=== PATIENT | male | born 1955 | race Caucasian/White ===

== ENCOUNTER → 2019-05-18 16:27 | Outpatient (CLI) | payer MEDICARE, SELFPAY ==
--- NOTE | ~2019-05-18 | XR_ITS ---
EXAMINATION: XR shoulder RT min 2V INDICATION: Right shoulder pain TECHNIQUE: Four views of the right shoulder are submitted. COMPARISON: None FINDINGS: Normal alignment. No fracture. There is mild glenohumeral and acromioclavicular joint osteo arthritis. Soft tissues are unremarkable. Scattered calcified pulmonary nodules are consistent with o ld granulomatous disease. IMPRESSION: Mild osteoarthritis without acute osseous abnormality. Reviewed, dictated and finalized at location A. EROLE PREPARER
== END ==
PROVIDERS: PCP Family Medicine; Visit Provider Physician Assistant Medical
DX: M19.011 Primary osteoarthritis, right shoulder (principal)
CPT/HCPCS: 73030

== ENCOUNTER → 2019-05-30 09:39 | Outpatient (CLI) | payer MEDICARE, SELFPAY ==
--- NOTE | ~2019-05-30 | XR_ITS ---
EXAMINATION: XR chest 2V EXAM DATE: 05/30/2019 10:47 INDICATION: Chest pain, generalized. Pulmonary nodules on shoulder x-ray. TECHNIQUE: Frontal and lateral projections of the chest obtained and reviewed. There is no prior isabell dy for comparison. FINDINGS: Multiple scattered nodular densities which are likely calcified given density, consistent with granulomas. There is moderate chronic appearing hyperinflation. No confluent consolidation, pneu mothorax or pleural effusion suspected. Mild thoracic spondylosis. IMPRESSION: Granulomata. Hyperinflation. Reviewed, dictated and finalized at location B. ERY DIRECTOR
== END ==
PROVIDERS: PCP Family Medicine; Visit Provider Family Medicine
DX: J84.10 Pulmonary fibrosis, unspecified (principal)
CPT/HCPCS: 71046

== ENCOUNTER 2019-06-15 14:11 | Outpatient (CLI) | payer MEDICARE, SELFPAY ==
--- NOTE | 2019-06-30 13:35 | WPDPFTINT ---
PFT Interpretation PFT Interpretation: DOS: 06/15/2019 REQUESTING: Mary Pandey PA-C REASON FOR TESTING: Hyperinflation of lungs PULMONARY FUNCTION TESTS This test was reproducible with 3 adequate attempts. Spirometry: Mild decrease in FEV1 78% predicted, 2.48 L. FVC is normal 86%. FEV1% is decreased 62%. TAB66-02% is reduced at 40%, and increases by 20% with bronchodilator. Lung volumes: Normal TLC, 98%. Increased RV/TLC 41%. increased airway resistance 266%. Diffusion: DLCO 98%, normal. Flow volume loop: Mild scooping of the expiratory limb. IMPRESSION: This study shows mild obstructive ventilatory impairment, severe in the small airways with a mild response to bronchodilator only in the small airways. Mild air trapping and increase in airway resistance. Normal diffusion. This pattern may be seen in asthma. Close clinical follow-up is recommended. Meagan Streeter MD
== END 2019-06-15 14:12 | disposition home or self-care (01) ==
PROVIDERS: PCP Family Medicine; Visit Provider Physician Assistant Medical
DX: R09.89 Other specified symptoms and signs involving the circulatory and respiratory systems (principal)
CPT/HCPCS: 94060; 94726; 94729

== ENCOUNTER 2020-02-28 16:30 | Outpatient (CLI) | payer MEDICARE, SELFPAY ==
[2020-02-28 18:29] LABS: Vitamin D 25 Hydroxy 75.8 ng/mL
== END 2020-02-28 16:31 | disposition home or self-care (01) ==
LOC: ANHLAB 16:32
PROVIDERS: PCP Family Medicine; Visit Provider Nurse Practitioner Family
DX: E55.9 Vitamin D deficiency, unspecified (principal)
CPT/HCPCS: 36415; 82306

== ENCOUNTER 2020-03-20 13:33 | Outpatient (CLI) | payer MEDICARE, SELFPAY ==
--- NOTE | ~2020-03-20 | US_ITS ---
US right upper quadrant INDICATION: Hepatitis C. Liver lesion. PROCEDURE: Realtime right upper abdominal ultrasound. COMPARISON: No prior studies for comparison. FINDINGS: The pancreas is normal without focal mass or pancreatic ductal dilation. Liver slightly in creased with heterogeneous echotexture. No discrete mass identified. Normal without focal mass or int rahepatic biliary dilatation. There is normal directional flow in the portal vein. Gallbladder is surgically absent. Common bile duct measures 5 mm. IMPRESSION: 1: Coarse heterogeneous echotexture of the liver. No discrete mass. Reviewed, dictated and finalized at location A. IST ADVISER
[2020-03-20 14:57] LABS: Basophils Percent Auto 0.4 % (0.2-1.2); Eosinophils Absolute Auto 0.1 K/mm3 (0-0.3); Eosinophils Percent Auto 1.3 % (0-4.4); Hematocrit 40.6 % (42.0-52.0); Hemoglobin 13.9 g/dL (14.0-18.0); Immature Granulocyte Absolute 0.01 K/mm3 (0.00-0.031); Immature Granulocyte Percent A 0.1 % (0-0.5); Lymphocytes Absolute Auto 2.48 K/mm3 (0.9-3.2); Lymphocytes Percent Auto 33.4 % (18.3-44.2); Mean Corpuscular HGB Conc 34.2 g/dl (32-36); Mean Corpuscular Hemoglobin 31.1 pg (26-34); Mean Corpuscular Volume 90.8 fl (80-100); Mean Platelet Volume 9.9 fl (7.4-10.4); Monocytes Absolute Auto 0.7 K/mm3 (0.1-0.6); Monocytes Percent Auto 8.9 % (2.6-8.5); Neutrophils Absolute Auto 4.2 K/mm3 (1.3-6.7); Neutrophils Percent Auto 55.9 % (45.5-73.1); Platelet Count Result 195 k/mm3 (150-375); Red Blood Count 4.47 M/mm3 (4.6-6.20); Red Cell Distribution Width 12.5 % (11.5-14.5); White Blood Count 7.4 K/mm3 (4.5-10.0)
[2020-03-20 15:03] LABS: Prothrombin Time 13.7 Seconds (11.1-14.7)
[2020-03-20 15:05] LABS: Alanine Aminotransferase 25 U/L (4-50); Albumin Level 4.4 g/dL (3.5-5.1); Alkaline Phosphatase 74 U/L (38-126); Anion Gap 5 mmol/L (8-16); Aspartate Amino Transferase 37 U/L (17-59); Bilirubin,Total 0.8 mg/dL (0.2-1.3); Blood Urea Nitrogen 12 mg/dL (9-20); Calcium 9.6 mg/dL (8.4-10.2); Carbon Dioxide 33 mmol/L (22-30); Chloride 100 mmol/L (98-107); Estimated Glomerular Filt Rate > 60; Glucose 98 mg/dL (75-110); Potassium 3.8 mmol/L (3.4-5.0); Sodium 138 mmol/L (137-145)
== END 2020-03-20 13:34 | disposition home or self-care (01) ==
PROVIDERS: PCP Family Medicine
DX: K76.89 Other specified diseases of liver (principal); K74.60 Unspecified cirrhosis of liver; B18.2 Chronic viral hepatitis C; K76.9 Liver disease, unspecified
CPT/HCPCS: 36415; 76705; 80053; 85025; 85610

== ENCOUNTER → 2020-05-24 11:43 | Outpatient (CLI) | payer MEDICARE, MEDICAID, SELFPAY ==
--- NOTE | ~2020-05-24 | XR_ITS ---
XR knee RT 2V DATE: 05/24/2020 12:14 INDICATION: Right knee pain TECHNIQUE: Standing AP and lateral views COMPARISON: None FINDINGS: There is prominent enthesopathy of the superior pole of patella at the quadriceps tendon in sertion. Mild suprapatellar knee joint effusion is suggested. No fracture or dislocation, periosteal reaction or bone destruction, radiopaque intra-articular loose body or chondrocalcinosis or any significant joint space narrowing is evident. IMPRESSION: Suggestion of small suprapatellar knee joint effusion Prominent superior pole patellar enthesopathy Reviewed, dictated and finalized at location B. RIBUTION SYSTEMS SERVICEPERSON
--- NOTE | ~2020-05-24 | XR_ITS ---
XR_CERV2-3V_CR DATE: 05/24/2020 12:14 INDICATION: Neck pain TECHNIQUE: Standing AP, lateral, swimmer's and open-mouth views COMPARISON: None FINDINGS: There is straightening of the cervical spine, which may be due to muscle spasm. C1 and C2 are normally aligned and the odontoid process is intact. No fracture or dislocation or locked facet is evident. No prevertebral soft tissue swelling. There is severe degenerative disc disease at C3-4, C5-6 and C6-7 and moderately severe degenerative d isease at C4-5. There is degenerative change at the apophyseal and uncovertebral joints. IMPRESSION: Straightening of the cervical spine Severe cervical spondylosis Reviewed, dictated and finalized at Location A. Reviewed, dictated and finalized at location B. ERTY ADJUSTER
== END ==
PROVIDERS: PCP Family Medicine; Visit Provider Nurse Practitioner Family
DX: G89.29 Other chronic pain (principal); M25.561 Pain in right knee; M47.892 Other spondylosis, cervical region
CPT/HCPCS: 72040; 73560

== ENCOUNTER → 2020-05-30 13:09 | Outpatient (CLI) | payer MEDICARE, MEDICAID, SELFPAY ==
--- NOTE | ~2020-05-30 | MR_ITS ---
EXAMINATION: MR cervical spine wo con DATE: 05/30/2020 14:42 INDICATION: Neck pain. TECHNIQUE: Magnetic resonance imaging (MRI) of the cervical spine was performed without intravenous c ontrast. Sequences included sagittal T2-weighted FSE, sagittal STIR FSE, sagittal T1-weighted FSE, ax ial MERGE, and axial T2-weighted FSE. COMPARISON: Cervical spine radiographs 05/24/2020 FINDINGS: Bone alignment is normal. Vertebral body heights are normal. There is severely decreased di sc height at C3-C4, moderately decreased disc height at C4-C5, and severely decreased disc height fro m C5-C6 through C7-T1 with endplate remodeling. The spinal cord signal intensity is normal. The follo wing disc levels are specifically discussed: C2-C3: The disc does not extend beyond the endplate margin. There is no uncovertebral joint osteoarth ritis. There is mild bilateral facet joint osteoarthritis. There is no neural foraminal stenosis. The re is no central canal stenosis. C3-C4: There is a central extrusion. There is mild right and moderate left uncovertebral joint osteoa rthritis. There is mild bilateral facet joint osteoarthritis. There is mild bilateral neural foramina l stenosis. There is mild central canal stenosis with ventral indentation of the spinal cord. C4-C5: The disc is bulging. There is severe right and moderate left uncovertebral joint osteoarthriti s. There is severe right and moderate left facet joint osteoarthritis. There is moderate right neural foraminal stenosis. There is mild central canal stenosis with ventral indentation of the spinal cord . C5-C6: There is interbody fusion. There is moderate bilateral uncovertebral joint hypertrophy. There is no facet joint osteoarthritis. There is mild bilateral neural foraminal stenosis. There is mild ce ntral canal stenosis with ventral indentation of spinal cord. C6-C7: The disc does not extend beyond the endplate margin. There is moderate right and severe left u ncovertebral joint osteoarthritis. There is no facet joint osteoarthritis. There is mild left neural foraminal stenosis. There is mild central canal stenosis. C7-T1: The disc does not extend beyond the endplate margin. There is moderate bilateral uncovertebral joint osteoarthritis. There is mild bilateral facet joint osteoarthritis. There is mild bilateral ne ural foraminal stenosis. There is no central canal stenosis. IMPRESSION: 1. Severe cervical spondylosis. Reviewed, dictated and finalized at location A. OVEMENT LEAD
--- NOTE | ~2020-05-30 | MR_ITS ---
EXAMINATION: MR brain/brain stem wo/w con DATE: 05/30/2020 14:58 INDICATION: Headache. TECHNIQUE: Magnetic resonance imaging (MRI) of the brain and brainstem was performed without and with 12 mL MultiHance intravenous contrast. Sequences included sagittal and axial T1-weighted FSE, axial diffusion-weighted FS EPI, axial T2*-weighted GRE, axial T2-weighted FLAIR Propeller, and axial T2-we ighted Propeller. Postcontrast sequences included axial and coronal T1-weighted FSE. Apparent diffusi on coefficient (ADC) maps were created. COMPARISON: None. FINDINGS: There are old infarcts in left cerebellum. There are scattered areas of nonspecific increas ed T2-weighted signal intensity in the cerebral white matter. There is no intracranial hemorrhage, ac [place] infarction, or abnormal intracranial mass lesion. The ventricles are normal in size. The paranasa l sinuses are clear. The orbits are normal. The mastoid air cells are normal. IMPRESSION: 1. 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 2. Mild nonspecific cerebral white matter disease, which likely represents chronic small vessel ische matilde disease. Reviewed, dictated and finalized at location A. STRIPPER IMPRESSION: 1. 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 2. Mild nonspecific cerebral white matter disease, which likely represents belt lacer alvin small vessel ischemic disease.
[2020-05-30 14:39] LABS: Estimated Glomerular Filt Rate > 60
== END ==
PROVIDERS: PCP Family Medicine; Visit Provider Nurse Practitioner Family
DX: R41.0 Disorientation, unspecified (principal); M47.892 Other spondylosis, cervical region; R93.0 Abnormal findings on diagnostic imaging of skull and head, not elsewhere classified
CPT/HCPCS: 70553; 72141; A9577

== ENCOUNTER 2020-07-04 16:15 | Outpatient (CLI) | payer MEDICARE, MEDICAID, SELFPAY ==
--- NOTE | ~2020-07-04 | MR_ITS ---
EXAMINATION: MR knee RT wo con DATE: 07/04/2020 16:59 INDICATION: Right knee pain. TECHNIQUE: Magnetic resonance imaging (MRI) of the right knee was performed without intravenous contr ast. Sequences included axial PD-weighted FS FSE, coronal PD-weighted FSE and PD-weighted FS FSE, sag ittal PD-weighted FSE, and sagittal T2-weighted FS FSE. COMPARISON: Right knee radiographs 05/24/2020 FINDINGS: Medial compartment: There is a complex tear involving body and posterior horn of medial meniscus. There is a 4 mm paralab ral cyst adjacent to the posterior horn. There is partial-thickness cartilage loss of femoral condyle , deep at the central and articular surface. There is partial-thickness cartilage loss of tibial cond yle, deep at the central articular surface. There are tiny marginal osteophytes. Lateral compartment: There is a vertical tear of body of lateral meniscus. There is shallow partial-thickness cartilage lo ss of tibial condyle and femoral condyle. There are tiny marginal osteophytes. Patellofemoral compartment: There is cartilage surface irregularity of patella and trochlea. There are tiny marginal osteophytes. Ligaments and tendons: The anterior and posterior cruciate ligaments are normal. There are changes of prior sprains of media l collateral ligament and fibular collateral ligament characterized by thickening and increased signa l intensity proximally. There is mild patellar tendinopathy. Fluid: There is a small knee joint effusion. There is mild superficial infrapatellar bursitis. There is trac e fluid in a Gu's cyst. IMPRESSION: 1. Moderate chondrosis of medial compartment and mild chondrosis of lateral and patellofemoral compar tments. 2. Tears of medial and lateral menisci. 3. Small knee joint effusion. Reviewed, dictated and finalized at location A. IMPRESSION: 1. Moderate chondrosis of medial compartment and mild chondrosis of lateral and patellofemoral compartments. 2. Tears of medial and lateral menisci. 3. Small knee joint effusion.
== END 2020-07-04 16:16 | disposition home or self-care (01) ==
PROVIDERS: PCP Family Medicine; Visit Provider Nurse Practitioner Family
DX: M25.661 Stiffness of right knee, not elsewhere classified (principal); M25.461 Effusion, right knee; S83.231A Complex tear of medial meniscus, current injury, right knee, initial encounter; S83.281A Other tear of lateral meniscus, current injury, right knee, initial encounter
CPT/HCPCS: 73721

== ENCOUNTER → 2020-07-30 04:37 | Outpatient (CLI) | payer MEDICARE, SELFPAY ==
[2020-07-30 19:57] LABS: SARS-CoV-2 RNA PCR Negative
== END ==
PROVIDERS: PCP Family Medicine; Visit Provider Orthopaedic Surgery
DX: Z01.812 Encounter for preprocedural laboratory examination (principal); Z20.822 Contact with and (suspected) exposure to COVID-19
CPT/HCPCS: C9803; U0003; U0005

== ENCOUNTER 2020-07-30 07:39 | Outpatient (CLI) | payer MEDICARE, SELFPAY ==
--- NOTE | 2020-07-30 08:30 | ECG_ITS ---
Measurements Intervals [place] Rate: 54 P: 64 IA: 141 QRS: 66 QRSD: 110 T: 64 QT: 434 QTc: 412 Interpretive Statements SINUS BRADYCARDIA INCOMPLETE RIGHT BUNDLE BRANCH BLOCK DELAYED PRECORDIAL R/S TRANSITION BASELINE ARTIFACT- I, II, AVR BORDERLINE ECG Electronically Signed On 07-30-2020 8:15:09 CDT by Jose E Christensen D.O.
== END 2020-07-30 07:40 | disposition home or self-care (01) ==
LOC: ANHSURGERY 07:43
PROVIDERS: PCP Family Medicine; Visit Provider Orthopaedic Surgery
DX: Z01.810 Encounter for preprocedural cardiovascular examination (principal); I10 Essential (primary) hypertension; I45.10 Unspecified right bundle-branch block; R00.1 Bradycardia, unspecified
CPT/HCPCS: 93005; C9803; U0003; U0005

== ENCOUNTER 2020-08-02 01:22 | Day surgery (SDC) | payer MEDICARE, MEDICAID, SELFPAY ==
[2020-07-26 10:14] VITALS: BMI 19.6
--- NOTE | 2020-08-01 10:02 | WPDANESEPPF ---
Anes - Initial Pre Proc Eval Procedure: Operation Date: 08/02/20 10:30 Proposed Procedures p Arthroscopic Right Partial Medial and Lateral Meniscectomy - Jerome Hall MD Date/Time: 08/01/20 10:02 Surgeon: Jerome Hall MD Pre Op Diagnosis: right meniscus tear Patient Data Age: 65 Gender: M Height: 1.8 m Weight: 64 kg Allergies Allergy/AdvReac Type Severity Reaction Status Date / Time No Known Allergies Allergy Verified 08/02/20 08:49 Home Medications Medication Instructions Recorded Confirmed Type amlodipine 5 mg tablet 5 mg PO QPM 05/18/19 08/02/20 History B-complex with vitamin C 1 tablet PO DAILY 07/19/20 08/02/20 History aspirin 81 mg tablet,delayed 81 mg PO DAILY 07/19/20 08/02/20 History release cholecalciferol (vitamin D3) 25 25 mcg PO DAILY 07/19/20 08/02/20 History mcg (1,000 unit) capsule cbnlnefrqnpj-jrr-jypjc acid-vit 1 tablet PO DAILY 07/19/20 08/02/20 History K-lycop 400 mcg-20 mcg-370 mcg tablet duloxetine 30 mg PO QPM 07/26/20 08/02/20 History hydroxyzine HCl 37.5 mg PO TID PRN 07/26/20 08/02/20 History meloxicam 15 mg PO HS 07/26/20 08/02/20 History rosuvastatin 40 mg tablet 40 mg PO QPM #90 tablet 08/01/20 08/02/20 Rx hydrocodone-acetaminophen 1 - 2 tablet PO Q4H PRN #14 tablet 08/02/20 Rx MDD 8 tablets Patient hx anesthesia problems: none Family hx anesthesia problems: none PMFSH Past Medical History Medical History (Updated 07/19/20 @ 14:13 by Jerome Hall MD) Anxiety Anxiety and depression BMI between 19-24,adult Choking Chronic neck pain Cirrhosis Confusion COPD (chronic obstructive pulmonary disease) Elevated WBC count Encounter for lipid screening for cardiovascular disease Essential hypertension History of hepatitis C Hx of completed stroke Hyperlipidemia Insomnia Joint ache Memory loss Screening for prostate cancer Surgical History Surgical History (Updated 07/19/20 @ 13:24 by Marva Hall MA) History of cholecystectomy Family History Family History Father Family history of lung cancer Sibling Family history of lung cancer Grandparent Family history of malignant neoplasm of breast in first degree relative Social History Social History (Updated 07/19/20 @ 13:23 by Marva Hall MA) Smoking packs per day: 1.5 Smoking cigarettes per day: 30.0 Years smoked: 30 Smoking pack-years: 45.00 Smoking status: Former smoker Tobacco type: cigarettes Smoking end date: 10/05/99 Additional smoking assessment comments: 20+ years ago quit Alcohol intake: former Alcohol use details: HEAVY DRINKER PRIOR TO QUITTING 30 YEARS AGO Substance use: former Substance use type: amphetamines Other substance usage details: TEENAGER/EARLY 20'S Living arrangements: with family Additional living arrangements comments: [facility] Gender identity (if verbalized by the patient): Male Spiritual care concerns: No Anes - Eval Final PreProcedure Day of Procedure 08/01/20 10:02 Patient weight: normal Heart: regular rate and rhythm Lungs: clear to auscultation and normal air movement Airway: Mallampati scale class II Neurological: alert and oriented Last oral intake: >/= 8 hours ASA classification: IV Emergent: no Anesthetic plan: proceed Anesthesia type and monitoring: general LMA Informed Consent: The patient's anesthetic plan and its attendant risks and benefits were discussed with the patient/family/POA. Questions were solicited and answers provided to the satisfaction of the patient/family/POA.
[2020-08-02] VITALS (7 sets, daily range): BP systolic 100–141; BP diastolic 64–80; PULSE 59–72; RESP 12–20; TEMP 36.3; O2SAT 98–100
--- NOTE | 2020-08-02 07:03 | WPDHPUPDATE1 ---
History and Physical Update Update Date/Time: 08/02/20 07:03 History and Physical has been reviewed, including an updated exam of the patient. There are NO changes in the patient's condition. Risks, benefits, and alternatives have been discussed and questions answered. Patient agrees to proceed with procedure.
[2020-08-02] MEDS: ACETAMINOPHEN 500 MG TABLET 1000 MG PO (09:26)
[2020-08-02] MEDS: LACTATED RINGERS 1,000 ML 30 ML IV CONT ×2 (09:30→11:28)
[2020-08-02] MEDS: KETOROLAC 15 MG/ML VIAL (*BKC) IV PUSH (09:32)
[2020-08-02] MEDS: ceFAZolin 2 GM/D5W 50 ML 2 GM/50 ML BAG IVPB (10:30)
[2020-08-02] MEDS: BUPIVACAINE/EPINEPHRINE 0.5% 30 ML VIAL INFILTRATE (10:53)
--- NOTE | 2020-08-02 12:11 | PM.PROC ---
Procedure Note - Detailed Date of procedure: 08/02/20 Pre-op diagnosis: right meniscus tear Medial and lateral meniscus tears. Post-op diagnosis: same Procedure performed: Arthroscopic partial medial and lateral meniscectomy. Description of procedure: Significant posterior horn tear of the medial meniscus treated with debridement. Grade 2/Iii chondromalacia on the femur primarily. Minimal chondroplasty. Lateral compartment showed a small area of grade 1 chondromalacia on the femur. The tibia was normal. The lateral meniscus had mild fraying of the inner margin which was treated with gentle debridement. Anesthesia: GETA Surgeon: Jerome Hall MD Estimated blood loss (mL): 5 Complications: None Condition: stable Findings: Brief History: The patient complained of knee pain, swelling and mechanical symptoms despite conservative treatment. MRI confirmed the presence of a meniscus tear. Procedure Details: The patient was identified and the surgical site confirmed and signed in the preoperative holding area. Antibiotics were started per protocol. She was brought to the operative room and transferred to the OR table. A general anesthetic was administered. Supine position with the operative lower extremity position in the leg ramírez after placement of a well padded tourniquet. The leg support was lowered and the contralateral limb was supported with a soft bolster. The knee was prepped and draped in the usual sterile fashion. A time-out was performed. The portal sites were marked and infiltrated with 0.5% Marcaine 20 mL. The limb was exsanguinated and the tourniquet inflated to 300 mL Hg. Standard inferolateral and inferomedial portals were established. Inflow was obtained with the saline pump. The camera was introduced. Diagnostic inspection of the joint was accomplished. The menisci were debrided with the arthroscopic shaver and punches until stable. The arthroscopic instruments were removed. The tourniquet released and wounds closed with subcutaneous 3-0 Monocryl absorbable suture. Steri strips and a sterile dressing were applied. A light elastic wrap was placed. The patient was extubated and brought to the recovery room in stable condition.
== END 2020-08-02 12:56 | disposition home or self-care (01) ==
PROVIDERS: PCP Family Medicine; Visit Provider Orthopaedic Surgery
PROC: (CPT 29870; principal; 2020-08-02 10:30)
DX: S83.231A Complex tear of medial meniscus, current injury, right knee, initial encounter (principal); S83.281A Other tear of lateral meniscus, current injury, right knee, initial encounter; I10 Essential (primary) hypertension; E78.5 Hyperlipidemia, unspecified; J44.9 Chronic obstructive pulmonary disease, unspecified; Z86.73 Personal history of transient ischemic attack (TIA), and cerebral infarction without residual deficits; Z87.891 Personal history of nicotine dependence; X58.XXXA Exposure to other specified factors, initial encounter; Y93.9 Activity, unspecified; Y92.9 Unspecified place or not applicable; Y99.9 Unspecified external cause status
CPT/HCPCS: 29880; A9270; J0690; J1100; J1885; J2250; J2405; J2704; J3010; J7120

== ENCOUNTER 2020-08-23 06:47 | Outpatient (CLI) | payer MEDICARE, SELFPAY ==
[2020-08-23 07:22] LABS: Hematocrit 36.7 % (42.0-52.0); Hemoglobin 12.2 g/dL (14.0-18.0); Mean Corpuscular HGB Conc 33.2 g/dl (32-36); Mean Corpuscular Hemoglobin 30.7 pg (26-34); Mean Corpuscular Volume 92.4 fl (80-100); Mean Platelet Volume 9.8 fl (7.4-10.4); Platelet Count Result 150 k/mm3 (150-375); Red Blood Count 3.97 M/mm3 (4.6-6.20); White Blood Count 4.8 K/mm3 (4.5-10.0)
[2020-08-23 07:40] LABS: Alanine Aminotransferase 19 U/L (4-50); Albumin Level 4.1 g/dL (3.5-5.1); Alkaline Phosphatase 55 U/L (38-126); Anion Gap 3 mmol/L (8-16); Aspartate Amino Transferase 32 U/L (17-59); Bilirubin,Total 0.6 mg/dL (0.2-1.3); Blood Urea Nitrogen 17 mg/dL (9-20); Calcium 9.3 mg/dL (8.4-10.2); Carbon Dioxide 30 mmol/L (22-30); Chloride 104 mmol/L (98-107); Cholesterol 145 mg/dL (0-200); Estimated Glomerular Filt Rate > 60; Glucose 95 mg/dL (75-110); HDL Direct 60 mg/dL; Potassium 4.2 mmol/L (3.4-5.0); Sodium 137 mmol/L (137-145); Triglycerides 52 mg/dL (<150)
[2020-08-23 07:46] LABS: LDL Cholesterol Direct 67 mg/dL
[2020-08-23 08:06] LABS: Prostate Specific Antigen 1.3 ng/mL (< OR = 4.0)
[2020-08-23 22:14] LABS: Vitamin D 25 Hydroxy 49.7 ng/mL
== END 2020-08-23 06:48 | disposition home or self-care (01) ==
LOC: ANHLAB 06:51
PROVIDERS: PCP Family Medicine; Visit Provider Nurse Practitioner Family
DX: E55.9 Vitamin D deficiency, unspecified (principal); I10 Essential (primary) hypertension; R53.83 Other fatigue; Z13.29 Encounter for screening for other suspected endocrine disorder; E78.5 Hyperlipidemia, unspecified; Z12.5 Encounter for screening for malignant neoplasm of prostate
CPT/HCPCS: 36415; 80053; 80061; 82306; 84153; 84443; 85027; G0103

== ENCOUNTER 2020-09-04 16:09 | Outpatient (CLI) | payer MEDICARE, MEDICAID, SELFPAY ==
--- NOTE | ~2020-09-04 | MR_ITS ---
EXAMINATION: MR shoulder RT wo con DATE: 09/04/2020 17:03 INDICATION: Right shoulder pain and limited range of motion TECHNIQUE: Magnetic resonance imaging (MRI) of the right shoulder was performed without intravenous c ontrast. Sequences included axial PD-weighted FS FSE, coronal oblique PD-weighted FS FSE, coronal obl ique T2-weighted FS FSE, sagittal PD-weighted FS FSE, and sagittal T1-weighted SE. COMPARISON: None. FINDINGS: Coracoacromial arch: The acromion undersurface is curved in morphology (type II). Small anterior subacromial spur at the a cromial insertion of the normal coracoacromial ligament. Mild acromioclavicular osteoarthritis. Rotator cuff: Mild supraspinatus and infraspinatus tendinopathy. There is a small near full-thickness articular jaleesa ed tear along the superior facet footplate of the posterior supraspinatus tendon which measures up to 5 mm in maximal AP width and 2.0 cm medial to lateral. The teres minor tendon is normal. Mild subsca pularis tendinopathy without discrete tear. Normal rotator cuff muscle bulk and signal. Biceps tendon, glenoid labrum and glenohumeral cartilage: Long head of the biceps tendon is normal. superior, anterior to posterior tear of the glenoid labrum (SLAP tear) which begins anteriorly at the 3:00 position and extends posteriorly to the 10:00 positio n. Mild partial-thickness cartilage loss with smooth chondral surface along the cephalad half of the glenoid. Cartilage at the humeral head appears relatively preserved. Fluid: Physiologic amount of fluid in the glenohumeral joint and biceps tendon sheath. No loose osteochondra l bodies. Slight increased fluid signal in the subacromial/subdeltoid bursa consistent with minimal b ursitis. Bones: Normal marrow signal. No fracture or pathologic marrow replacing process. Mild cystic change at the l ramiro tuberosity. IMPRESSION: 1. Mild rotator cuff tendinopathy with small near full-thickness articular sided tear of the posterio r supraspinatus. 2. Mild glenohumeral osteoarthritis with SLAP tear of the anterior, superior to posterosuperior gleno id labrum. 3. Mild acromioclavicular osteoarthritis. Reviewed, dictated and finalized at location A. IMPRESSION: 1. Mild rotator cuff tendinopathy with small near full-thickness articular side d tear of the posterior supraspinatus. 2. Mild glenohumeral osteoarthritis with SLAP tear of the anterior, superior to posterosuperior glenoid labrum. 3. Mild acromioclavicular osteoarthritis.
== END 2020-09-04 16:10 | disposition home or self-care (01) ==
PROVIDERS: PCP Family Medicine; Visit Provider Nurse Practitioner Family
DX: M75.101 Unspecified rotator cuff tear or rupture of right shoulder, not specified as traumatic (principal); M19.011 Primary osteoarthritis, right shoulder; S43.431A Superior glenoid labrum lesion of right shoulder, initial encounter
CPT/HCPCS: 73221

== ENCOUNTER 2020-10-01 07:37 | Outpatient (CLI) | payer MEDICARE, SELFPAY ==
[2020-10-01 08:01] LABS: Hematocrit 40.1 % (42.0-52.0); Hemoglobin 12.8 g/dL (14.0-18.0); Mean Corpuscular HGB Conc 31.9 g/dl (32-36); Mean Corpuscular Hemoglobin 30.2 pg (26-34); Mean Corpuscular Volume 94.6 fl (80-100); Mean Platelet Volume 9.6 fl (7.4-10.4); Platelet Count Result 171 k/mm3 (150-375); Red Blood Count 4.24 M/mm3 (4.6-6.20); Red Cell Distribution Width 13.3 % (11.5-14.5); White Blood Count 6.1 K/mm3 (4.5-10.0)
== END 2020-10-01 07:38 | disposition home or self-care (01) ==
PROVIDERS: PCP Family Medicine; Visit Provider Nurse Practitioner Family
DX: D64.9 Anemia, unspecified (principal)
CPT/HCPCS: 36415; 85027

== ENCOUNTER 2020-10-05 07:18 | Outpatient (CLI) | payer MEDICARE, SELFPAY ==
[2020-10-05 08:55] LABS: Iron 104 ug/dL (49-181)
[2020-10-05 09:04] LABS: Percent Iron Saturation 35 % (20-50)
== END 2020-10-05 07:19 | disposition home or self-care (01) ==
PROVIDERS: PCP Family Medicine; Visit Provider Physician Assistant Medical
DX: R71.0 Precipitous drop in hematocrit (principal)
CPT/HCPCS: 36415; 83540; 83550

== ENCOUNTER 2020-10-31 10:10 | Outpatient (CLI) | payer MEDICARE, SELFPAY ==
[2020-10-31 10:45] LABS: Basophils Percent Auto 0.3 % (0.2-1.2); Eosinophils Absolute Auto 0.1 K/mm3 (0-0.3); Eosinophils Percent Auto 1.8 % (0-4.4); Hematocrit 40.9 % (42.0-52.0); Hemoglobin 13.2 g/dL (14.0-18.0); Immature Granulocyte Absolute 0.02 K/mm3 (0.00-0.031); Immature Granulocyte Percent A 0.3 % (0-0.5); Lymphocytes Absolute Auto 1.75 K/mm3 (0.9-3.2); Lymphocytes Percent Auto 28.5 % (18.3-44.2); Mean Corpuscular HGB Conc 32.3 g/dl (32-36); Mean Corpuscular Hemoglobin 30.3 pg (26-34); Mean Platelet Volume 10.1 fl (7.4-10.4); Monocytes Absolute Auto 0.5 K/mm3 (0.1-0.6); Monocytes Percent Auto 8.6 % (2.6-8.5); Neutrophils Absolute Auto 3.7 K/mm3 (1.3-6.7); Neutrophils Percent Auto 60.5 % (45.5-73.1); Platelet Count Result 176 k/mm3 (150-375); Red Blood Count 4.35 M/mm3 (4.6-6.20); Red Cell Distribution Width 13.1 % (11.5-14.5); White Blood Count 6.2 K/mm3 (4.5-10.0)
[2020-10-31 11:06] LABS: Alanine Aminotransferase 27 U/L (4-50); Albumin Level 4.5 g/dL (3.5-5.1); Alkaline Phosphatase 70 U/L (38-126); Anion Gap 9 mmol/L (8-16); Aspartate Amino Transferase 35 U/L (17-59); Bilirubin,Total 0.9 mg/dL (0.2-1.3); Blood Urea Nitrogen 14 mg/dL (9-20); Calcium 9.5 mg/dL (8.4-10.2); Carbon Dioxide 29 mmol/L (22-30); Chloride 101 mmol/L (98-107); Estimated Glomerular Filt Rate > 60; Glucose 97 mg/dL (65-110); Magnesium 2.1 mg/dL (1.6-2.3); Potassium 4.1 mmol/L (3.4-5.0); Sodium 139 mmol/L (137-145)
[2020-10-31 11:22] LABS: Vitamin D 25 Hydroxy 55.4 ng/mL
[2020-10-31 12:21] LABS: Iron 133 ug/dL (49-181); Percent Iron Saturation 45 % (20-50)
[2020-11-06 13:13] LABS: Testosterone Total 617 ng/dL (250-1100)
== END 2020-10-31 10:11 | disposition home or self-care (01) ==
PROVIDERS: PCP Family Medicine; Visit Provider Nurse Practitioner Family
DX: R71.0 Precipitous drop in hematocrit (principal); E78.5 Hyperlipidemia, unspecified; R25.2 Cramp and spasm; R25.1 Tremor, unspecified; R53.83 Other fatigue; Z13.29 Encounter for screening for other suspected endocrine disorder; E55.9 Vitamin D deficiency, unspecified; E53.8 Deficiency of other specified B group vitamins
CPT/HCPCS: 36415; 80053; 82306; 82607; 83540; 83550; 83735; 84402; 84403; 84443; 85025

== ENCOUNTER 2020-12-20 12:36 | Outpatient (CLI) | payer MEDICARE, MEDICAID, SELFPAY ==
--- NOTE | ~2020-12-20 | XR_ITS ---
EXAMINATION: XR barium swallow modified DATE: 12/20/2020 14:28 INDICATION: Dysphagia TECHNIQUE: Modified barium esophagram was performed by myself to administered fluoroscopy, in conjun ction with speech pathologist who administered barium in varying consistencies as per speech patholog ist documentation. This was recorded on tape. A single fluoroscopic spot image was recorded. The DAP for this procedure was 0.965 Gycm2. Fluoroscopy exposure time was 1.5 minutes. FINDINGS: Oral stage: Adequate function. Pharyngeal phase: Adequate function. Laryngeal penetration: None. Aspiration: None. Laryngeal sensitivity: Present. IMPRESSION: Unremarkable examination. Please refer to speech pathologist findings and specific feedin g recommendations. Reviewed, dictated and finalized at location A. IMPRESSION: Unremarkable examination. Please refer to speech pathologist findin gs and specific feeding recommendations.
--- NOTE | 2020-12-20 17:56 | STOPEVAL ---
MODIFIED BARIUM SWALLOW EVALUATION: Thank you for referring Shane Dorantes Roe to [facility] [place] Attending Provider: Sunil Hansen Outpatient Past Medical History Past Medical History Source of Past Medical History Recalled from Previous Visit, Unable to Confirm with Patient /Family Neurological History Hx Cerebrovascular Accident (CVA) Yes: ~2009, NO DEFICITS Cardiovascular History Hx Hypercholesterolemia Yes Hx Hypertension Yes Hx Other Cardiac Disorders Yes: DR MADRID Respiratory History Hx Asthma Yes Gastrointestinal History Hx Cholecystectomy Yes Hx Gastroesophageal Reflux Disease Yes Hx Hernia Yes: BILAT INGUINAL HERNIA Hx Other Gastrointestinal Disorders Yes: dysphagia 11/2019, HX CIRRHOSIS, 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, 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 Genitourinary History Hx Genitourinary Disorders No Significant History Musculoskeletal History Hx Arthritis Yes: KNEES, SHOULDERS, NECK Hx Other Musculoskeletal Disorders Yes: RT MENISCUS TEAR Hematological History Hx Hematological Disorders No Significant History Endocrine History Hx Endocrine Disorders No Significant History HEENT History Hx Tonsillectomy Yes Integumentary History Hx Skin Disorders No Significant History Reproductive History Hx Reproductive Disorders No Significant History Psychosocial History Hx Anxiety Yes: HX PANIC ATTACKS Pain History History of Any Previous or Ongoing No Significant History Instance of Pain Anesthesia History Hx Anesthesia Reactions No Significant History Modified Barium Swallow Evaluation Recent Swallowing History Reports Dysphagia food gets hung up, especially cereal but it can be with anything Onset of Dysphagia it's been happening awhile, maybe 2 years Other Related History CVA 5-10 years ago History of Pneumonia No Reported Difficult Consistencies Solids Intake Method Prior to Swallow Oral Evaluation Diet Prior to Swallow Evaluation Regular, Level 7 Liquid Consistency Prior to Swallow Thin (0) Evaluation Consistency Thin Other Amount cup and straw Oral Preparatory Symptoms None Oral Phase Symptoms None Pharyngeal Phase Symptoms None Severity of Vallecular Residue None - 0% No Residue Severity of Pyriform Sinus Residue None - 0% No Residue 8 Point Laryngeal Penetration-Aspiration Material Does Not Enter Airway Scale Cervical/Esophageal Symptoms None Solid Consistency Method of Presentation Spoon Oral Preparatory Symptoms None Oral Phase Symptoms
== END 2020-12-20 12:37 | disposition home or self-care (01) ==
LOC: ANHIMG 12:42
PROVIDERS: PCP Family Medicine
DX: R13.10 Dysphagia, unspecified (principal)
CPT/HCPCS: 92611

== ENCOUNTER → 2020-12-20 15:49 | Outpatient (CLI) | payer MEDICARE, MEDICAID, SELFPAY ==
--- NOTE | ~2020-12-20 | MR_ITS ---
EXAMINATION: MR brain/brain stem wo con EXAM DATE: 12/20/2020 16:28 INDICATION: Dysphagia, Unspec., Personal history of transient ischemic a dysphagia . Generalized head pain, unsteady gait. TECHNIQUE: Magnetic resonance imaging (MRI) of the brain/brain stem obtained without contrast. Franklin jara T1, axial diffusion, gradient echo (T2*), T1, T2, FLAIR sequences obtained. Comparison is made to prior examination from 05/30/2020. FINDINGS: Old small left cerebellar infarctions. There are no areas of restricted diffusion to sugges t acute infarction. There is no acute hemorrhage seen on the T2*, a hemosiderin sensitive sequence. No intraparenchymal brain mass lesion. There is mild periventricular and subcortical T2/FLAIR signal hyperintensity, nonspecific but probably related to small vessel ischemic disease (microangiopathy). There is mild prominence of the sulci and ventricles related to cerebral atrophy. There are no e xtra-axial collections. Flow voids are seen in the cerebral arteries on the T2-weighted sequences co nsistent with their expected patency. The orbits are unremarkable. Soft tissue is unremarkable. IMPRESSION: 1. Old small left cerebellar infarctions unchanged. 2. Chronic age related findings. Reviewed, dictated and finalized at location D.
== END ==
PROVIDERS: PCP Family Medicine
DX: R13.10 Dysphagia, unspecified (principal); Z86.73 Personal history of transient ischemic attack (TIA), and cerebral infarction without residual deficits; R93.0 Abnormal findings on diagnostic imaging of skull and head, not elsewhere classified
CPT/HCPCS: 70551

== ENCOUNTER 2022-05-14 08:06 | Outpatient (CLI) | payer MEDICARE, SELFPAY ==
[2022-05-14 09:48] LABS: Basophils Percent Auto 0.7 % (0.2-1.2); Eosinophils Absolute Auto 0.2 K/mm3 (0-0.3); Eosinophils Percent Auto 3.1 % (0-4.4); Hematocrit 39.5 % (42.0-52.0); Immature Granulocyte Absolute 0.01 K/mm3 (0.00-0.031); Immature Granulocyte Percent A 0.2 % (0-0.5); Lymphocytes Absolute Auto 1.79 K/mm3 (0.9-3.2); Lymphocytes Percent Auto 32.8 % (18.3-44.2); Mean Corpuscular HGB Conc 32.9 g/dl (32-36); Mean Corpuscular Hemoglobin 30.3 pg (26-34); Mean Corpuscular Volume 92.1 fl (80-100); Mean Platelet Volume 10.8 fl (7.4-10.4); Monocytes Absolute Auto 0.6 K/mm3 (0.1-0.6); Monocytes Percent Auto 10.4 % (2.6-8.5); Neutrophils Absolute Auto 2.9 K/mm3 (1.3-6.7); Neutrophils Percent Auto 52.8 % (45.5-73.1); Platelet Count Result 182 k/mm3 (150-375); Red Blood Count 4.29 M/mm3 (4.6-6.20); Red Cell Distribution Width 12.6 % (11.5-14.5); White Blood Count 5.5 K/mm3 (4.5-10.0)
[2022-05-14 10:03] LABS: Alanine Aminotransferase 20 U/L (6-50); Albumin Level 4.1 g/dL (3.5-5.1); Alkaline Phosphatase 77 U/L (38-126); Anion Gap 5 mmol/L (8-16); Aspartate Amino Transferase 30 U/L (17-59); Bilirubin,Total 0.7 mg/dL (0.2-1.3); Blood Urea Nitrogen 17 mg/dL (9-20); Calcium 8.9 mg/dL (8.4-10.2); Carbon Dioxide 30 mmol/L (22-30); Chloride 104 mmol/L (98-107); Cholesterol 152 mg/dL (0-200); Estimated Glomerular Filt Rate > 60; Glucose 89 mg/dL (65-110); HDL Direct 51 mg/dL; Potassium 4.2 mmol/L (3.4-5.0); Sodium 139 mmol/L (137-145); Triglycerides 63 mg/dL (<150)
[2022-05-14 10:14] LABS: LDL Cholesterol Direct 68 mg/dL
[2022-05-14 10:31] LABS: Prostate Specific Antigen 1.9 ng/mL (< OR = 4.0)
[2022-05-14 11:03] LABS: Vitamin B12 > 1000.0 pg/mL (239-931)
[2022-05-14 12:06] LABS: Vitamin D 25 Hydroxy 32.1 ng/mL
[2022-05-14 15:10] LABS: Iron 128 ug/dL (49-181)
[2022-05-14 15:21] LABS: Percent Iron Saturation 41 % (20-50)
== END 2022-05-14 08:07 | disposition home or self-care (01) ==
PROVIDERS: PCP Family Medicine; Visit Provider Nurse Practitioner Family
DX: D64.9 Anemia, unspecified (principal); E78.5 Hyperlipidemia, unspecified; I10 Essential (primary) hypertension; E55.9 Vitamin D deficiency, unspecified; Z12.5 Encounter for screening for malignant neoplasm of prostate; F32.9 Major depressive disorder, single episode, unspecified; F41.9 Anxiety disorder, unspecified; E53.8 Deficiency of other specified B group vitamins
CPT/HCPCS: 36415; 80053; 80061; 82306; 82607; 83540; 83550; 84153; 84443; 85025; G0103